=== PATIENT | female | born 1955 | race Caucasian/White ===

== ENCOUNTER → 2025-02-07 | Outpatient (CLI) | payer MEDICAID, SELFPAY ==
--- NOTE | 2025-02-07 12:40 | XR_ITS ---
Examination: Bone densitometry Date and time of exam:February 07, 2025 1242 hours INDICATIONS: Menopause age 50, stage IV kidney disease vitamin D 8 months Technique: Lumbar spine and hip total bone mineralization values of an calculated. Peak reference and age match control results have been displayed. Findings: Lumbar spine total bone mineralization is0.985 gm/cm2. This is 0.6 standard deviations below peak reference. This is 1.7 standard deviations above age-matched controls. Hip total bone mineralization is 0.666 gm/cm2 This is 2.3 standard deviations below peak reference. This is 0.6 standard deviations below age-matched controls Impression: There is normal mineralization based on lumbar spine measurements. There is osteopenia based on hip measurements
== END | disposition home or self-care (01) ==
PROVIDERS: Referring Provider Physician Assistant; Visit Provider Physician Assistant
DX: Z13.820 Encounter for screening for osteoporosis (principal); M85.88 Other specified disorders of bone density and structure, other site
CPT/HCPCS: 77080

== ENCOUNTER 2025-06-04 15:08 | Emergency (ER) | payer MEDICAID, SELFPAY ==
[2025-06-04] VITALS (8 sets, daily range): BP systolic 160–250; BP diastolic 70–89; PULSE 50–61; RESP 14–100; TEMP 36.8; O2SAT 97–100; BMI 19.3
--- NOTE | 2025-06-04 16:10 | EDRME_ITS ---
Rapid Medical Screening Exam [facility] Arrival date/time: 06/04/25 15:08 This is a 70-year-old female that is brought in by son with complaints of dizziness. Patient states that this morning she woke up and noticed that she had blurred vision in both eyes. She states that when she got up out of bed she felt unsteady. She reports that she got up to make her coffee this morning and felt like she was very uncoordinated getting her coffee ready. Patient went with son to go do some errands and son noticed that her speech was slurred and she was not able to say what she wanted to say. Patient brought to the emergency room at that time. Patient has no focal deficits. She denies numbness tingling. Stroke alert called and Dr. Byers came to the bedside and took over patient care. I have greeted and performed a focused initial assessment of this patient. Initial appropriate labs ordered at this time. A comprehensive ED assessment and evaluation of the patient and analysis of all test and completion of medical decision making process will be conducted by additional ED provider. Chief Complaint: Dizziness Time Seen by Provider: 06/04/25 15:54 Vital signs: Vital Signs Temperature 98.2 F 06/04/25 15:43 Pulse Rate 61 06/04/25 15:43 Respiratory Rate 19 06/04/25 15:43 Blood Pressure 160/70 H 06/04/25 15:43 Pulse Oximetry (%) 97 06/04/25 15:43 Oxygen Delivery Method Room Air 06/04/25 15:43
--- NOTE | 2025-06-04 16:10 | XR_ITS ---
Examination: CTA carotids with intravenous contrast CTA brain, head with intravenous contrast. 2-D sagittal, coronal reconstructions. 3-D reconstructions. Exam date and time: June 04, 2025 at 1636 hours INDICATIONS: Stroke alert, onset focal neurologic deficit today CTDI: vol (mGy) 15.6 DLP: (mGycm) 454 Technique: Multiple CTA axial brain, head carotid images post intravenous contrast injection 75 cc, Isovue-370. 2-D sagittal, coronal reconstructions. 3-D reconstructions, 3-D post processing including vascular maximum intensity projection images. Low dose protocols were performed. One or more of the following dose reduction techniques were used; automated exposure control, adjustment of the mA and/or KV according to patient size, use of iterative reconstruction technique. Findings: Heavy calcification origin left subclavian artery, 7 mm right thyroid nodule 70-80 30 to 50% stenosis left carotid bifurcation, origin left internal carotid artery Heavy calcification right carotid bifurcation, 70 to 80% stenosis at the carotid bifurcation extending into the internal carotid artery Dominant right vertebral artery Severe stenosis proximal left vertebral artery Intracranial vertebral arteries basilar artery and posterior cerebral branches fill without large vessel occlusions Moderate calcification juxtasellar portions internal carotid arteries, no large vessel occlusions involving middle cerebral or anterior cerebral artery branches IMPRESSION: 30 to 50% stenosis left carotid bifurcation origin left internal carotid artery 70 to 80% stenosis right carotid bifurcation origin right internal carotid artery Severe stenosis proximal left vertebral artery, recommend carotid vertebral Doppler sonography follow-up to assess for retrograde flow in the left vertebral artery No cerebral large vessel arterial occlusions or thrombus
--- NOTE | 2025-06-04 16:10 | XR_ITS ---
Examination: CT brain head without contrast. 2-D sagittal coronal reconstructions Date and time of exam: June 04 0 25, 1623 hours INDICATIONS: Stroke alert, onset focal neurologic deficit today, slurred speech blurred vision beginning this morning CTDI: vol (mGy): 49.5 DLP: (mGycm): 989 Technique: Multiple CT axial sections of the brain have been obtained, 5 mm slice thickness. Contrast has not been administered. 2-D sagittal, coronal reconstructions have been obtained Low dose protocols were performed. One or more of the following dose reduction techniques were used; automated exposure control, adjustment of the mA and/or KV according to patient size, use of iterative reconstruction technique. Findings: No significant ventricular enlargement. Intra-axial or extra-axial hemorrhage density is not seen. No mass effect or midline shift Basal cisterns are not remarkable. Fourth ventricle is midline. Cranial vault intact. Impression: Negative for acute hemorrhage, mass effect or midline shift
--- NOTE | 2025-06-04 16:10 | EKG_ITS ---
[facility] Test Date: 2025-06-04 Pat Name: NORMAN CAVAZOS Department: Room: - Gender: Female Residential Le[employer]: : 1955 Requested By: Meaghan Dela Cruz Order Number: [id number] Reading MD: Meaghan Dela Cruz Measurements Intervals Leary Rate: 57 P: 81 NH: 164 QRS: 58 QRSD: 86 T: 80 QT: 436 QTc: 425 Interpretive Statements SINUS BRADYCARDIA No previous ECG available for comparison /store/S0/[id number].pdf
--- NOTE | 2025-06-04 16:10 | XR_ITS ---
EXAMINATION: AP chest single view TECHNIQUE: 1. AP portable semiupright chest single view Date and time: June 04, 2025, 1659 hours INDICATIONS: Stroke alert, onset focal neurologic deficit today including weakness dizziness FINDINGS: Early heart failure Mild prominence left ventricle Prominent vascular congestion including central vascular engorgement. Early septal pulmonary edema. Prominent osteopenia IMPRESSION: Early heart failure
--- NOTE | 2025-06-04 16:16 | EDNOTE_ITS ---
ED Dizzyness RME/HPI General Chief Complaint: Dizziness Stated Complaint: WEAK DIZZY BLURRY VISION SINCE THIS MORNING Time Seen by Provider: 06/04/25 15:54 Source: patient and family Arrival date/time: 06/04/25 15:08 Mode of arrival: ambulatory Limitations: altered mental status RME / HPI RME / HPI Narrative: 06/04/25 15:08 This is a 70-year-old female that is brought in by son with complaints of dizziness. Patient states that this morning she woke up and noticed that she had blurred vision in both eyes. She states that when she got up out of bed she felt unsteady. She reports that she got up to make her coffee this morning and felt like she was very uncoordinated getting her coffee ready. Patient went with son to go do some errands and son noticed that her speech was slurred and she was not able to say what she wanted to say. Patient brought to the emergency room at that time. Patient has no focal deficits. She denies numbness tingling. Stroke alert called and Dr. Byers came to the bedside and took over patient care. I have greeted and performed a focused initial assessment of this patient. Initial appropriate labs ordered at this time. A comprehensive ED assessment and evaluation of the patient and analysis of all test and completion of medical decision making process will be conducted by additional ED provider. Dr. Yu assessment Patient is a 70-year-old female is in the emergency department with concerns for acute onset weakness, right-sided facial droop, difficulty speaking and confusion started approximately 730 this morning. Per the patient states that she woke up felt fine then at approximately 730 she was making her coffee, was having difficulty coordinating movements between her hands, then noticed that she was having a hard time finding words, and felt dizzy. Symptoms seem to improve and then got worse. When patient's son went to go see her at approximately noon, noticed that she was not at her baseline. And progressively her speech has become more slurred. Patient is usually independent, performs all of her activities of daily living, ambulates without any difficulties. Has a history of hypertension, diabetes, chronic smoking. Patient does not know what medication she is allergic to. No drugs no alcohol no recent travel. No fevers no chills no nausea no vomiting no chest pain no palpitations no abdominal pain. Related Data Allergies Allergy/AdvReac Type Severity Reaction Status Date / Time No Known Allergies Allergy Verified 06/04/25 15:10 Past Medical History Past Medical History CARDIAC: Positive Hypercholesterolemia and Hypertension; Negative Congestive Heart Failure RESPIRATORY: Negative Chronic Obstructive Pulmonary Disease (COPD) GENITOURINARY: Positive Genitourinary Disorders and Renal Disease (CKD4) REPRODUCTIVE: Positive Previous Pregnancies ENT: Positive History of ENT Problems (wears glasses) ENDOCRINE: Positive Diabetes Mellitus Type 2; Negative Diabetes Mellitus Type 1 HEMATOLOGIC: Positive Anemia Social History SMOKING STATUS: Heavy (> 1 pack/day) ED Exam General Limitations: Present altered mental status General appearance: Present alert, in no apparent distress and other Head Head exam: Present atraumatic; Absent normocephalic Eye Eye exam: Present normal appearance, PERRL and other (Patient with mild right- sided eye deviation) ENT ENT exam: Present normal exam and normal oropharynx Neck Neck exam: Present normal inspection and full ROM Chest Chest inspection: Present normal inspection; Absent symmetric chest wall rise Respiratory Respiratory exam: Present normal lung sounds bilaterally; Absent respiratory distress Cardiovascular Cardiovascular exam: Present regular rate and normal rhythm Abdominal Exam Abdominal exam: Present soft; Absent distention or tenderness Extremities Exam Extremities exam: Present normal inspection Neurological Exam Neurological exam: Present alert and other (Right-sided facial droop, asymmetric smile, mild weakness in the left upper, left lower extremity) Course Quality Measures none Orders Category Date Time Status Bedside Blood Glucose NOW Care 06/04/25 16:10 Active Hi Ranger Operator NOW Care 06/04/25 16:10 Active Continuous Pulse Oximetry NOW Care 06/04/25 16:10 Completed EKG (ED ONLY) *Do not use* NOW Care 06/04/25 16:10 Completed In and Out Catheter NEEDED Care 06/04/25 16:10 Active Insert IV NOW Care 06/04/25 16:10 Active NIH Stroke Scale now Care 06/04/25 16:10 Active NPO NOW Care 06/04/25 16:10 Active Nurse Swallow Screen x1 Care 06/04/25 16:10 Active Consult to Neurology / Tele-Neurology Routine Cons 06/04/25 16:10 Active Referral - Canvas Baster Stat Cons 06/04/25 18:[address] angio stroke protocol Stat Exams 06/04/25 16:[address] stroke protocol Stat Exams 06/04/25 16:10 Completed EKG (ED Only) Stat Exams 06/04/25 16:10 Draft XR chest 1V portable Stat Exams 06/04/25 16:10 Completed CBC Stat Lab 06/04/25 16:13 Completed Comprehensive Metabolic Panel Stat Lab 06/04/25 16:13 Completed Drug Screen,Urine Stat Lab 06/04/25 17:42 Completed Magnesium Stat Lab 06/04/25 16:13 Completed Partial Thromboplastin Time Stat Lab 06/04/25 16:13 Completed Prothrombin Time with INR Stat Lab 06/04/25 16:13 Completed Troponin I Stat Lab 06/04/25 16:13 Completed Urinalysis, C/S if Indicated Stat Lab 06/04/25 17:42 Completed Urine Culture Stat Lab 06/04/25 17:42 Received Aspirin Chew Med 06/04/25 18:39 Discontinued 81 mg PO X1 ONE Calcium Gluconate 10% Inj Med 06/04/25 18:32 Discontinued 1 gm IV X1 ONE Clopidogrel [Plavix] Med 06/04/25 18:39 Discontinued 300 mg PO X1 ONE Dextrose 50% Syr [D50w Syringe Abboject] Med 06/04/25 18:32 Discontinued 50 ml IVP X1 ONE Insulin Regular Med 06/04/25 18:32 Discontinued 5 unit IV X1 ONE Nitrofurantoin Macro [Macrobid] Med 06/04/25 19:03 Discontinued 100 mg PO X1 ONE Ondansetron Inj [Zofran Inj] Med 06/04/25 16:08 Active 4 mg IVP Q4HR PRN hydrALAZINE INJ [Apresoline Inj] Med 06/04/25 17:54 Discontinued 10 mg IVP X1 ONE hydrALAZINE INJ [Apresoline Inj] Med 06/04/25 19:00 Discontinued 10 mg IVP X1 ONE Oxygen Delivery NOW RT 06/04/25 16:10 Active Vital Signs Vital signs: Vital Signs Temperature 98.2 F 06/04/25 15:43 Pulse Rate 61 06/04/25 15:43 Respiratory Rate 19 06/04/25 15:43 Blood Pressure 160/70 H 06/04/25 15:43 Pulse Oximetry (%) 97 06/04/25 15:43 Oxygen Delivery Method Room Air 06/04/25 15:43 Dizziness MDM Narrative MDM Narrative:: Patient is a 70-year-old female is in the emergency department with concerns for left-sided weakness, right-sided facial droop as well as difficulty with coordination of her hands and speaking that started at approximately 7:00 in the morning today. Patient is beyond the tenecteplase window, and concern that patient is having a stroke. Activated as a stroke alert. Ordered CT brain, CT angio of the head and neck, labs. Labs with evidence of leukocytosis 13, no left shift. Hemoglobin is 10, I do not have a prior for comparison. Patient with potassium 5.3, ordered calcium gluconate insulin dextrose. Patient creatinine is 2.0. No transaminitis troponin not elevated. EKG performed today at 1651 notable for sinus bradycardia, heart rate 57, normal intervals, nonspecific T wave changes, not a cardiac alert. Urine with 85 white blood cells, 1+ bacteria, will provide patient with an antibiotic. Patient states she does not have any allergies to antibiotics however at 1 point states that she did get a rash when she took an antibiotic but never had any difficulty breathing. Drug screen negative. CT dry scan unremarkable, CT angio of the head and neck without any evidence of large vessel occlusion however patient has stenosis of the left and right carotid bifurcation. Patient also has severe stenosis of the vertebral artery. Given this finding consulted vascular surgery for emergent consult. Spoke with Dr. Skelton vascular surgeon no current medical. Accepts patient for transfer. States that patient will be evaluated by the neurology team, and the vascular surgery team for possible intervention. Updated patient and her son at bedside. In agreement with transfer. Following a dose of blood pressure medication, patient's blood pressure now is at goal. Will transfer. Patient data External records reviewed:: [facility] previous records (Per chart review, patient has no previous ED visits or admissions to this facility.) Clinical information provided by:: patient Social determinants that could affect healthcare access:: none Patient has the following chronic illnesses:: DM, HTN, HLD How is presenting disease/condition affected by chronic disease/condition?: exacerbated by Evaluation data The following diagnostics were reviewed and interpreted by me:: lab results, radiology exam(s) and EKG tracing(s) Lab and/or radiology exams considered but not ordered:: none Interpretation Summary: [facility] Signed Patient: NORMAN CAVAZOS [facility]. Record#: [id number] Birthdate: 1955 Age/Sex: 70 / F Location: [facility] Attending Dr: Ordering Physician: Meaghan Dela Cruz NP Date of Service: 06/04/25 Procedure(s): XR chest 1V portable Accession Number(s): [id number] cc: Gray Ballesteros MD; NO PRIMARY/FAMILY,PHYSICIAN; Meaghan Dela Cruz NP~ EXAMINATION: AP chest single view TECHNIQUE: 1. AP portable semiupright chest single view Date and time: June 04, 2025, 1659 hours INDICATIONS: Stroke alert, onset focal neurologic deficit today including weakness dizziness FINDINGS: Early heart failure Mild prominence left ventricle Prominent vascular congestion including central vascular engorgement. Early septal pulmonary edema. Prominent osteopenia IMPRESSION: Early heart failure Dictated By: Gray Ballesteros MD Signed By: <Electronically signed by Gray Ballesteros MD in OV> 06/04/25 182 [facility] Signed Patient: NORMAN CAVAZOS [facility]. Record#: [id number] Birthdate: 1955 Age/Sex: 70 / F Location: [facility] Attending Dr: Ordering Physician: Meaghan Dela Cruz NP Date of Service: 06/04/25 Procedure(s): CT stroke protocol Accession Number(s): [id number] cc: Gray Ballesteros MD; Meaghan Dela Cruz NP~ Examination: CT brain head without contrast. 2-D sagittal coronal reconstructions Date and time of exam: June 04, 1623 hours INDICATIONS: Stroke alert, onset focal neurologic deficit today, slurred speech blurred vision beginning this morning CTDI: vol (mGy): 49.5 DLP: (mGycm): 989 Technique: Multiple CT axial sections of the brain have been obtained, 5 mm slice thickness. Contrast has not been administered. 2-D sagittal, coronal reconstructions have been obtained Low dose protocols were performed. One or more of the following dose reduction techniques were used; automated exposure control, adjustment of the mA and/or KV according to patient size, use of iterative reconstruction technique. Findings: No significant ventricular enlargement. Intra-axial or extra-axial hemorrhage density is not seen. No mass effect or midline shift Basal cisterns are not remarkable. Fourth ventricle is midline. Cranial vault intact. Impression: Negative for acute hemorrhage, mass effect or midline shift Dictated By: Gray Ballesteros MD Signed By: <Electronically signed by Gray Ballesteros MD in OV> 06/04/25 1735 [facility] Signed Patient: NORMAN CAVAZOS Record#: [id number] Birthdate: 1955 Age/Sex: 70 / F Location: [facility] Attending Dr: Ordering Physician: Meaghan Dela Cruz NP Date of Service: 06/04/25 Procedure(s): CT angio stroke protocol Accession Number(s): [id number] cc: Gray Ballesteros MD; Meaghan Dela Cruz NP~ Examination: CTA carotids with intravenous contrast CTA brain, head with intravenous contrast. 2-D sagittal, coronal reconstructions. 3-D reconstructions. Exam date and time: June 04, 2025 at 1636 hours INDICATIONS: Stroke alert, onset focal neurologic deficit today CTDI: vol (mGy) 15.6 DLP: (mGycm) 454 Technique: Multiple CTA axial brain, head carotid images post intravenous contrast injection 75 cc, Isovue-370. 2-D sagittal, coronal reconstructions. 3-D reconstructions, 3-D post processing including vascular maximum intensity projection images. Low dose protocols were performed. One or more of the following dose reduction techniques were used; automated exposure control, adjustment of the mA and/or KV according to patient size, use of iterative reconstruction technique. Findings: Heavy calcification origin left subclavian artery, 7 mm right thyroid nodule 70-80 30 to 50% stenosis left carotid bifurcation, origin left internal carotid artery Heavy calcification right carotid bifurcation, 70 to 80% stenosis at the carotid bifurcation extending into the internal carotid artery Dominant right vertebral artery Severe stenosis proximal left vertebral artery Intracranial vertebral arteries basilar artery and posterior cerebral branches fill without large vessel occlusions Moderate calcification juxtasellar portions internal carotid arteries, no large vessel occlusions involving middle cerebral or anterior cerebral artery branches IMPRESSION: 30 to 50% stenosis left carotid bifurcation origin left internal carotid artery 70 to 80% stenosis right carotid bifurcation origin right internal carotid artery Severe stenosis proximal left vertebral artery, recommend carotid vertebral Doppler sonography follow-up to assess for retrograde flow in the left vertebral artery No cerebral large vessel arterial occlusions or thrombus Dictated By: Gray Ballesteros MD Signed By: <Electronically signed by Gray Ballesteros MD in OV> 06/04/25 4730 Medications / Prescriptions Medications or Prescriptions considered but not ordered:: none Medication administrations:: Medication Administration History Ondansetron HCl (Ondansetron Inj 2 Mg/Ml Inj 2 Ml) 4 mg IVP Q4HR PRN PRN Reason: NAUSEA OR VOMITING Stop: 07/04/25 16:07 Discontinued Medications Aspirin (Aspirin 81 Mg Chew) 81 mg PO X1 ONE Stop: 06/04/25 18:40 Last Admin: 06/04/25 18:58 Dose: 81 mg Calcium Gluconate (Calcium Gluconate 10% Inj 1 Gm/10 Ml Vial) 1 gm IV X1 ONE Stop: 06/04/25 18:33 Last Admin: 06/04/25 18:42 Dose: 1 gm Documented By: BY Clopidogrel Bisulfate (Clopidogrel Bisulfate 75 Mg Tablet) 300 mg PO X1 ONE Stop: 06/04/25 18:40 Last Admin: 06/04/25 18:58 Dose: 300 mg Dextrose (Dextrose 50%-Water Inj 50 Ml Syringe) 50 ml IVP X1 ONE Stop: 06/04/25 18:33 Last Admin: 06/04/25 18:42 Dose: 50 ml Documented By: BY Hydralazine HCl (Hydralazine Inj 20 Mg/Ml Vial) 10 mg IVP X1 ONE Stop: 06/04/25 17:55 Last Admin: 06/04/25 18:00 Dose: 10 mg Documented By: BY Hydralazine HCl (Hydralazine Inj 20 Mg/Ml Vial) 10 mg IVP X1 ONE Stop: 06/04/25 19:01 Insulin Human Regular (Insulin Hum Regular 1 Unit/0.01 Ml (Per Unit)) 5 unit IV X1 ONE Stop: 06/04/25 18:33 Last Admin: 06/04/25 18:43 Dose: 5 unit Documented By: BY Co-signed By: CS Nitrofurantoin Macrocrystals (Nitrofurantoin Macro 100 Mg Capsule) 100 mg PO X1 ONE Stop: 06/04/25 19:04 see above Consultations Consultation(s) initiated? (list below): Yes Diagnosis Most likely diagnosis given after review of the tests above:: Stroke, Severe vertebral artery dissection Admission Indicated Admission indicated?: not indicated Explain why admission is indicated or not indicated:: Patient requires a higher [id number]. Admission Request Was there a request for admission?: No Disposition Plan Disposition Plan: Transfer Critical Care Time Critical Care Time Critical Care Time: Yes Total Critical Care Time (min.): 60 Attestation: The high probability of sudden, clinically significant deterioration in the patient?s condition required the highest level of my preparedness to intervene urgently. The services I provided to this patient were to treat and/or prevent clinically significant deterioration. Services included the following: chart data review, reviewing nursing notes and/or old charts, documentation time, data center consultant collaboration regarding findings and treatment options, medication orders and management, direct patient care, vital sign assessments and ordering, interpreting and reviewing diagnostic studies and lab tests. Aggregate critical care time includes only time during which I was engaged in work directly related to the patient?s care, as described above, whether at bedside or elsewhere in the Emergency Department. It did not include time spent performing other reported procedures or the services of residents, students, nurses or physician assistants. Discharge Plan Plan Patient Disposition: [facility] Pt Being Transferred to: [facility] Service Needed for Transfer: Vascular Surgery Prescriptions/Referrals Referrals: No Primary/Family,Physician [Primary Care Provider] - In 1 week Problem List Clinical Impression: Stroke, Vertebral artery dissection Patient/Caregiver Discharge Instructions Print Language: Citizen Of [place] Stand Alone Forms: Sahra Award Info., Patient Portal Info Letter
[2025-06-04 16:32] LABS: Basophils # (Auto) 0.1 Thou/mm3 (0.0-0.2); Basophils % (Auto) 1 % (0-2.5); Eosinophils # (Auto) 0.0 Thou/mm3 (0.0-0.5); Eosinophils % (Auto) 0 % (0-10); Hematocrit 29.8 % (36.0-46.0); Hemoglobin 10.6 g/dL (12.0-16.0); Immature Granulocytes Auto 0.07 Thou/mm3 (0.00-0.00); Lymphocytes # (Auto) 2.1 Thou/mm3 (1.0-4.8); Lymphocytes % (Auto) 16 % (10-50); Mean Corpuscular HGB Conc 35.6 g/dl (31.0-37.0); Mean Corpuscular Hemoglobin 34.0 pg (25.0-35.0); Mean Corpuscular Volume 96 fL (80-100); Monocytes # (Auto) 0.7 Thou/mm3 (0.0-0.8); Monocytes % (Auto) 5 % (0-12); Neutrophils # (Auto) 10.0 Thou/mm3 (1.8-7.7); Neutrophils % (Auto) 77 % (37-80); Nucleated Red Blood Cell # 0.00 Thou/mm3 (0.00-0.00); Nucleated Red Blood Cell % 0 /100 WBC (0); Platelet Count 334 Thou/mm3 (140-440); RDW Standard Deviation 46.8 fL (36.4-46.3); Red Blood Count 3.12 Miln/mm3 (4.00-5.20); White Blood Count 13.0 Thou/mm3 (3.6-11.0)
[2025-06-04 16:42] LABS: INR 0.9 (0.9-1.3); Partial Thromboplastin Time 25.9 Seconds (22.0-36.0); Prothrombin Time 10.1 Seconds (9.0-12.2)
[2025-06-04 16:47] LABS: Alanine Aminotransferase 19 U/L (10-49); Albumin, Serum 4.2 gm/dL (3.4-4.8); Albumin/Globulin Ratio 1.6 (1.2-2.2); Alkaline Phosphatase 100 U/L (46-116); Anion Gap 11 (7-16); Aspartate Amino Transferase 19 U/L (0-34); BUN/Creatinine Ratio 17 Ratio (12-20); Bilirubin,Total 0.3 mg/dL (0.3-1.2); Blood Urea Nitrogen 34 mg/dL (9-23); Calcium 9.0 mg/dL (8.3-10.6); Calcium (Corrected) 9.0 mg/dL (8.5-10.1); Carbon Dioxide 18.0 mMol/L (20.0-31.0); Chloride 111 mMol/L (98-107); Creatinine (Component) 2.0 mg/dL (0.6-1.3); Estimated Creatinine Clearance 18.6 mL/min (>60); Globulin 2.6 gm/dL (2.3-3.5); Glucose 176 mg/dL (74-106); Magnesium 2.4 mg/dL (1.6-2.6); Osmolality,Calculated 291 (275-295); Potassium 5.3 mMol/L (3.4-5.1); Sodium 140 mMol/L (136-145); Total Protein 6.8 gm/dL (5.7-8.2); Troponin I 0.029 ng/mL (0.0-0.045); eGFR 26 See Note
--- NOTE | 2025-06-04 16:48 | PRELIM_ITS ---
CT scan of the head without intravenous contrast (axial sections with sagittal and coronal reformats) June 04, 2025 at 1623 hours Clinical history: Focal neuro deficit, stroke suspected. Comparison: No prior study is available for comparison at the time of interpretation. Findings: There is no evidence of intracranial hemorrhage, mass effect or midline shift. There are periventricular white matter hypodensities, compatible with chronic small vessel ischemia. There is mild volume loss. The calvarium is unremarkable. The mastoid air cells and the visualized paranasal sinuses are clear. Impression: No evidence of intracranial hemorrhage, mass effect or midline shift. If there are persistent clinical symptoms or additional clinical concerns, consider MRI. Chronic small vessel ischemia and volume loss. Discussion Details: Results verbally communicated to : Dr. Yu at 04:35 PM 06/04/2025 Report Electronically Signed By: Judie Barron 06/04/2025 4:47:51 PM [EST]
--- NOTE | 2025-06-04 16:49 | PC.NURSE ---
LKW AROUND 0200 OR 0300 PT WOKE UP TO USE RESTROOM FELT NORMAL AROUND 0700 PT COMPLAINED OF BLURRY VISION AND WEAKNESS IN LEGS, THEN WENT WITH SON TO TRACTOR SUPPLY AROUND 1500 SON NOTICED NO VISION AND NO LOSING BALANCE, WHEN PT ARRIVED HERE TO ED SHE STARTED TO HAVE SLURRED SPEECH. IN CT PT WAS HAVING MILD APHASIA PT WAS HAVING DIFFICULTY FINDING WORDS FELT CONFUSED. PT HAS HISTORY DM TYPE 2, CKD 4, HTN, PT IS NOT ON ANY BLOOD THINNERS NO PRIOR STROKE HX.
--- NOTE | 2025-06-04 16:52 | ESCONSULT_ITS ---
Tele Neuro Consultation Consultation Date 06/04/25 Most Recent Vital Signs Last Vital Signs Temp 98.2 F 06/04/25 15:43 Pulse 59 L 06/04/25 16:42 Resp 14 06/04/25 16:42 BP 160/70 H 06/04/25 15:43 Pulse Ox 97 06/04/25 15:43 O2 Del Method Room Air 06/04/25 15:43 Laboratory-Coagulation Panel PT 10.1 Seconds (9.0-12.2) 06/04/25 16:13 INR 0.9 (0.9-1.3) 06/04/25 16:13 APTT 25.9 Seconds (22.0-36.0) 06/04/25 16:13 Consultation Narrative [facility] Tele[facility]rology Consult [facility] Patient Name:???Grisel Chang Date of :???1955 Identification Number:??? Date of Service:???06/04/2025 16:12:13 Diagnosis:?R47.01 - Aphasia Impression: ?Waxing and waning Expressive >> Receptive aphasia in the setting of resolved diplopia and resolved vision loss, acute onset LKN 07h00; NIHSS 1; not a candidate for TNK as LKN >4.5 hours. ?No history of seizure, stroke, or language deficit. ? ?CTH unremarkable for acute changes. ?CTA shows L ICA stenosis 50%; R. ICA stenosis >70%; severe L. vertebral artery stenosis; no LVO or indication for thrombectomy ? ?DDx includes encephalopathic process, cortical ischemia, seizure event. ? ?Plan: ?Urgent Vascular Surgery consultation for CTA findings. ?MRI Brain w/o and w/ CONTRAST ?-- If positive for new ischemia, then continue DAPT, and full stroke w/u including TTE [w/ agitated saline study to evaluate for PFO] ?r.EEG. ? ?DAPT as below ?-- [id number] x1 ?HD statin ? ?General comprehensive review of Infectious/metabolic/toxic provokers ?Vascular risk factor management; evaluate and titrate A1c<7, LDL<70. ?-- including regular aerobic exercise, Mediterranean diet, smoking/vaping cessation ? ?Permissive HTN as below; can reduce by 15-20% PRN in the first 24 hours if CTA is unremarkable for flow limiting stenosis. 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 ?Nephrology consultation ?Further below. ? Our recommendations are outlined below. Recommendations: ? Stroke/Telemetry Floor ? Neuro Checks (Q2) ? Bedside Swallow Eval ? DVT Prophylaxis ? IV Fluids, Normal Saline ? Head of Bed 30 Degrees ? Euglycemia and Avoid Hyperthermia (PRN Acetaminophen) ? Antihypertensives PRN if Blood pressure is greater than 220/120 or there is a concern for End organ damage/contraindications for permissive HTN. If blood pressure is greater than 220/120 give labetalol PO or IV or Vasotec IV with a goal of 15% reduction in BP during the first 24 hours. Sign Out: ? Discussed with Emergency Department Provider Advanced Imaging: Advanced imaging has been ordered. Results pending. Metrics: Last Known Well: 06/04/2025 07:00:00 Dispatch Time: 06/04/2025 16:12:13 Arrival Time: 06/04/2025 15:08:00 Initial Response Time: 06/04/2025 16:16:00Symptoms: Aphasia. . Initial patient interaction: 06/04/2025 16:18:34 NIHSS Assessment Completed: 06/04/2025 16:26:34Patient is not a candidate for Thrombolytic. Thrombolytic Medical Decision: 06/04/2025 16:26:34Patient was not deemed candidate for Thrombolytic because of following reasons: LKW outside 4.[address] Head: I personally reviewed all the CT images that were available to me and it showed: no major hemorrhage or territorial infarct. Primary Provider Notified of Diagnostic Impression and Management Plan on: 06/04/2025 16:41:04 History of Present Illness:Patient is a 70 year old Female. Patient was brought by private transportation with symptoms of Aphasia. . Patient presents to the ED with multiple neurological complaints. Patient woke this morning in her regular state of health. She notes that LKN 07h00, she started to develop blurred and darkening vision with speech changes. Documentation also notes R. sided weakness. Symptoms appeared to wax and wane, but not completely resolve. Patient was with son later in the day when symptoms significantly exacerbated once again, with dizziness, vision changes, and speech difficulty. Patient was brought to the ED . In the ED, patient is hypertensive. CTH us unremarkable for acute changes. CTA shows L ICA stenosis 50%; R. ICA stenosis >70%; severe L. vertebral artery stenosis. Examination reveals expressive > receptive aphasia with frustrated stuttering speech. There is no overt weakness, sensory changes, vision changes, at this time. Patient can confirm symptom onset at 07h00. All questions answered. Past Medical History: ?Hypertension ?Diabetes Mellitus ?There is no history of Stroke ?There is no history of Seizures Other PMH:? HTN CKD IV DM Medications: No Anticoagulant use? No Antiplatelet use Reviewed EMR for current medications Allergies:? Reviewed Social History: Smoking: No Family History: There is no family history of premature cerebrovascular disease pertinent to this consultation ROS : 14 Points Review of Systems was performed and was negative except mentioned in HPI. Past Surgical History: There Is No Surgical History Contributory To Today?s Visit Examination: BP(160/70),?Pulse(61),?Blood Glucose(188) 1A: Level of Consciousness - Alert; keenly responsive?+ 0 1B: Ask Month and Age - Both Questions Right?+ 0 1C: Blink Eyes & Squeeze Hands - Performs Both Tasks?+ 0 2: Test Horizontal Extraocular Movements - Normal?+ 0 3: Test Visual Kennedy - No Visual Loss?+ 0 4: Test Facial Palsy (Use Grimace if Obtunded) - Normal symmetry?+ 0 5A: Test Left Arm Motor Drift - No Drift for 10 Seconds?+ 0 5B: Test Right Arm Motor Drift - No Drift for 10 Seconds?+ 0 6A: Test Left Leg Motor Drift - No Drift for 5 Seconds?+ 0 6B: Test Right Leg Motor Drift - No Drift for 5 Seconds?+ 0 7: Test Limb Ataxia (FNF/Heel-Mendoza) - No Ataxia?+ 0 8: Test Sensation - Normal; No sensory loss?+ 0 9: Test Language/Aphasia - Mild-Moderate Aphasia: Some Obvious Changes, Without Significant Limitation?+ 1 10: Test Dysarthria - Normal?+ 0 11: Test Extinction/Inattention - No abnormality?+ 0 NIHSS Score:?1 Pre-Morbid Modified [place] Scale: 0 Points = No symptoms at all Spoke with :?ED MD This consult was conducted in real time using interactive audio and video [facility]. Patient was informed of the technology being used for this visit and agreed to proceed. Patient located in hospital and provider located at home/office setting. Patient is being evaluated for possible acute neurologic impairment and high probability of imminent or life-threatening deterioration. I spent total of 55 minutes providing care to this patient, including time for face to face visit via telemedicine, review of medical records, imaging studies and discussion of findings with providers, the patient and/or family. Dr Jules Ignacio [facility] For Inpatient follow-up with [facility] physician please call [facility] at . As we are not an outpatient service for any post hospital discharge needs please contact the hospital for assistance. If you have any questions for the [facility] physicians or need to reconsult for clinical or diagnostic changes please contact us via [facility] at . Signature :Jarret Ignacio
--- NOTE | 2025-06-04 17:31 | PD.ADDCONS ---
Addendum Consultation Addendum Date of report being addended: 06/04/25 Narrative: Please expedite CTA/CTH reads from radiology.
[2025-06-04] MEDS: hydrALAZINE INJ 20 MG/ML VIAL 10 MG IVP (18:00)
[2025-06-04 18:10] LABS: Collection Type, Urine Voided
[2025-06-04 18:34] LABS: Bacteria,Urine 1+; Bilirubin,Urine Negative (Negative); Blood,Urine Negative (Negative); Clarity,Urine Clear (Clear/Hazy); Color,Urine Lt-Yellow (Lt Yel-Yel); Glucose, Urine Negative (Negative); Hyaline Casts,Urine < 1 /hpf (0-1); Ketones,Urine Negative (Negative); Leukocyte Esterase,Urine Positive (Negative); Nitrite,Urine Negative (Negative); PH,Urine 6.5 (5.0-7.0); Protein,Urine 2+ (Neg - Trace); RBC,Urine 3 /hpf (0-3); Specific Gravity,Urine 1.020 (1.001-1.035); Squamous Epithelial Cell,Urine 2 /hpf (0-5); Urobilinogen,Urine Negative mg/dL (0.0-1.0); WBC,Urine 85 /hpf (0-5)
[2025-06-04 18:37] LABS: Culture Indicated,Urine Yes
[2025-06-04] MEDS: CALCIUM GLUCONATE 10% INJ 1 GM/10 ML VIAL IV (18:42)
[2025-06-04] MEDS: DEXTROSE 50%-WATER INJ 50 ML SYRINGE IVP (18:42)
[2025-06-04 18:43] LABS: Amphetamine/Methamp Scrn,U Negative (Negative); Barbiturate Screen,Urine Negative (Negative); Benzodiazepines Screen,Urine Negative (Negative); Benzoylecgonine Screen, Ur Negative (Negative); Fentanyl Screen,Urine Negative (Negative); Opiate Screen,Urine Negative (Negative); THC Screen,Urine Negative (Negative)
[2025-06-04] MEDS: INSULIN HUM REGULAR 1 UNIT/0.01 ML (PER UNIT) 5 UNIT IV (18:43)
--- NOTE | 2025-06-04 18:48 | PC.CC ---
Addendum entered by Dano Vergara RN 06/04/25 19:21: 1920: sent signed pcs form via [employer] w/ [employer]. 1900: Transport crew at bedside. 1899: pt agreeable to transfer. Transfer packet w/ 1 CD given to set up and charger Kris. Original Note: 1831: Peer to peer between Dr. Yu and Dr Boris Skelton completed. Pt accepted ED TO ED. Call report to [phone]. will set up stat transport per DR. yu 182: Initiated transfer w/ Abby at [facility] 182: Left VM at [facility] 182: [facility]: Received order for transfer for vasculary surgery from DR. Yu for severe bertebral artery stenosis.
[2025-06-04] MEDS: ASPIRIN 81 MG CHEW PO (18:58)
[2025-06-04] MEDS: CLOPIDOGREL BISULFATE 75 MG TABLET 300 MG PO (18:58)
[2025-06-04] MEDS: NITROFURANTOIN MACRO 100 MG CAPSULE PO (19:09)
--- NOTE | 2025-06-04 19:57 | PC.NURSE ---
report given to elina
== END 2025-06-04 19:30 | disposition short-term general hospital (02) ==
PROVIDERS: Nurse Practitioner Family; Emergency Provider Emergency Medicine
DX: I11.0 Hypertensive heart disease with heart failure (principal); E11.9 Type 2 diabetes mellitus without complications; I50.9 Heart failure, unspecified
CPT/HCPCS: 36415; 70450; 70496; 70498; 71045; 80053; 80307; 81001; 83735; 84484; 84703; 85025; 85610; 85730; 87086; 93005; 96374; 99284; A4649; J0360; J0612; J1815; Q9967; A9270